=== PATIENT | female | born 1940 | race Caucasian/White ===

== ENCOUNTER 2016-07-29 11:44 | Observation (INO) | payer MEDICARE, OTHER ==
[~2016-07-29] VITALS: Ht 165.1 cm; Wt 71.7 kg
[2016-07-29 12:40] LABS: HEMOGLOBIN 13.7 gm/dl (12.3-15.3); RED BLOOD COUNT 4.63 M/UL (4.00-5.10); WHITE BLOOD COUNT 5.3 K/UL (4.5-11.0)
[2016-07-29 13:03] LABS: BUN/CREATININE RATIO 20 (0-10)
[2016-07-29] MEDS ORDERED: PAXIL10 MG PO (18:29)
[2016-07-29] MEDS ORDERED: ZANAFLEX4 M1 PO (18:30)
[2016-07-29] MEDS ORDERED: ACCUPRIL 20 MG20 MG PO (18:30)
[2016-07-29] MEDS ORDERED: PLAVIX 75 MG TA75 MG PO (18:31)
[2016-07-29] MEDS ORDERED: NORCO 7.5-3251 EACH PO (18:31)
[2016-07-29] MEDS ORDERED: VENTOLIN HFA 66.7 GM INH (18:32)
[2016-07-29] MEDS ORDERED: IPRAT-ALBUT 0.5-3 ML INH (18:33)
[2016-07-29] MEDS ORDERED: CRESTOR10 MG PO (18:47)
[2016-07-29] MEDS ORDERED: ADVAIR 250-501 EACH INH (18:47)
[2016-07-29] MEDS ORDERED: SYNTHROID125 MCG PO (18:47)
[2016-07-30 04:43] LABS: RED BLOOD COUNT 4.39 M/UL (4.00-5.10)
[2016-07-30 04:44] LABS: WHITE BLOOD COUNT 6.9 K/UL (4.5-11.0)
[2016-07-30 05:05] LABS: BUN/CREATININE RATIO 18 (0-10)
[2016-07-31] MEDS ORDERED: LEVAQUIN500 MG PO (12:35)
== END 2016-07-31 14:03 | disposition home or self-care (01) ==
LOC: ER1 11:44 → MED SURG 4 18:20 → ZEROF 18:20 → MED SURG 4 19:42
PROVIDERS: Emergency Medicine; ADMIT Internal Medicine
DX: R20.9 Unspecified disturbances of skin sensation (principal); I25.10 Atherosclerotic heart disease of native coronary artery without angina pectoris; G89.4 Chronic pain syndrome; F41.9 Anxiety disorder, unspecified; K21.9 Gastro-esophageal reflux disease without esophagitis; I10 Essential (primary) hypertension; J45.909 Unspecified asthma, uncomplicated; J01.00 Acute maxillary sinusitis, unspecified; E03.9 Hypothyroidism, unspecified; Z85.72 Personal history of non-Hodgkin lymphomas; Z79.891 Long term (current) use of opiate analgesic; Z79.899 Other long term (current) drug therapy; Z86.73 Personal history of transient ischemic attack (TIA), and cerebral infarction without residual deficits; Z88.0 Allergy status to penicillin; Z88.8 Allergy status to other drugs, medicaments and biological substances; Z82.3 Family history of stroke
CPT/HCPCS: ECHO; 36415; 70450; 70551; 71010; 80048; 80053; 80061; 81001; 83690; 83735; 84439; 84443; 84484; 85025; 87086; 93005; 93306; 93880; 94640; 94664; 99285; G0378; J1650

== ENCOUNTER → 2016-08-07 | Outpatient (CLI) | payer MEDICARE, OTHER ==
[~2016-08-07] MED LIST: ACCUPRIL 20 MG20 MG PO; ADVAIR 250-501 EACH INH; CRESTOR10 MG PO; IPRAT-ALBUT 0.5-3 ML INH; LEVAQUIN500 MG PO; NORCO 7.5-3251 EACH PO; PAXIL10 MG PO; PLAVIX 75 MG TA75 MG PO; SYNTHROID125 MCG PO; VENTOLIN HFA 66.7 GM INH; ZANAFLEX4 M1 PO
== END ==
LOC: CT 07-29 15:00
DX: C85.81 Other specified types of non-Hodgkin lymphoma, lymph nodes of head, face, and neck (principal); N64.4 Mastodynia; R91.1 Solitary pulmonary nodule; R05 Cough; R04.9 Hemorrhage from respiratory passages, unspecified; J98.4 Other disorders of lung
CPT/HCPCS: 74160; J7050; Q9962